=== PATIENT | female | born 1970 ===

== ENCOUNTER → 2018-03-02 | Outpatient (CLI) | payer OTHER, BC ==
[~2018-03-02] MED LIST: BUDE10.2 IH; DICL75TA PO; FLUT16SP NS; IBUP-1027 PO; LOSA25TA54 PO; MELA3TAB2 PO; MONT10TA9 PO; NORG1TAB39 PO; VENTOLIN HFA18 GM INH
[2018-03-02 15:14] LABS: BILIRUBIN,URINE NEGATIVE (NEG); CLARITY,URINE CLEAR; COLOR,URINE YELLOW; NITRITE,URINE NEGATIVE (NEG); PROTEIN,URINE NEGATIVE (NEG-TRACE); UROBILINOGEN,URINE 0.2 mg/dL (0.2 mg/dL)
[2018-03-02 15:22] LABS: BASO # 0.1 x10^3/uL (0.0-0.2); BASO % 1 % (0-3); EOS # 0.1 x10^3/uL (0.0-0.7); EOS % 2 % (0-3); HEMATOCRIT 39.1 % (36.0-47.0); HEMOGLOBIN 13.8 g/dL (12.0-15.5); LYMPH # 1.6 x10^3/uL (1.0-4.8); LYMPH % 23 % (24-48); MEAN CORPUSCULAR HEMOGLOBIN 31 pg (25-35); MEAN CORPUSCULAR HGB CONC 35 g/dL (31-37); MEAN CORPUSCULAR VOLUME 88 fL (79-100); MONO # 0.5 x10^3/uL (0.0-1.1); MONO % 7 % (0-9); NEUT # 4.5 x10^3uL (1.8-7.7); NEUT % 67 % (31-73); PLATELET COUNT 298 x10^3/uL (140-400); RED BLOOD COUNT 4.45 x10^6/uL (3.50-5.40); RED CELL DISTRIBUTION WIDTH 12.5 % (11.5-14.5); WHITE BLOOD COUNT 6.7 x10^3/uL (4.0-11.0)
[2018-03-02 15:23] LABS: SQUAMOUS EPITHELIAL CELL,UR MANY /LPF
[2018-03-02 15:24] LABS: BACTERIA,URINE MODERATE /HPF (0-FEW)
--- NOTE | 2018-03-02 15:30 | EKG ---
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 Electronically Signed On 03-03-2018 13:11:27 SIDE DOOR WORKER by Demetrius Rolle
[2018-03-02 15:54] LABS: ALBUMIN 3.9 g/dL (3.4-5.0); CALCIUM 9.1 mg/dL (8.5-10.1); CREATININE 0.9 mg/dL (0.6-1.0); GFR 66.8; POTASSIUM 3.6 mmol/L (3.5-5.1); TOTAL BILIRUBIN 0.4 mg/dL (0.2-1.0); TOTAL PROTEIN 7.8 g/dL (6.4-8.2)
--- NOTE | 2018-03-02 16:51 | RAD ---
Chest radiograph 03/02/2018 4:25 PM INDICATION: Preoperative hysterectomy COMPARISON: None available TECHNIQUE: Frontal and lateral views of the chest are provided. FINDINGS: The cardiomediastinal silhouette is within normal limits. There are no pleural effusions. There is no pulmonary vascular congestion. There is no pneumothorax. The lungs are clear. No significant osseous abnormality is identified. IMPRESSION: No acute cardiopulmonary process. Electronically signed by: Stephanie Hoyt MD (03/02/2018 4:47 PM) [id number]
== END | disposition home or self-care (01) ==
LOC: SURGPAT 14:38
PROVIDERS: ATTEND Obstetrics & Gynecology
DX: Z01.818 Encounter for other preprocedural examination (principal); I10 Essential (primary) hypertension; Z98.890 Other specified postprocedural states
CPT/HCPCS: 36415; 71046; 80053; 81001; 85025; 87086; 93005

== ENCOUNTER 2018-03-09 09:03 | Observation (INO) | payer BC, OTHER ==
[2018-03-09] VITALS (7 sets, daily range): BP systolic 93–122; BP diastolic 55–76
[~2018-03-09] VITALS: Ht 154.9 cm; Wt 69.4 kg
[~2018-03-09 09:03] MED LIST changes: +IV RINGERS,LACTATED 1000ML 1,000 ML IV SCH; +LIDOCAINE 1% PF 2 ML VIAL. ID PRN; +ONDANSETRON PF 4 MG/2 ML VIAL. IV PRN; +PROCHLORPERAZINE 10 MG/2 ML VIAL. IV PRN; +fentaNYL PF VIAL 100 MCG/2 ML VIAL IV PRN
[2018-03-09] MEDS ORDERED: fentaNYL PF VIAL 100 MCG/2 ML VIAL ONE ×3 (09:27→12:19)
[2018-03-09] MEDS ORDERED: DEXAMETHASONE SOD PHOS 20 MG/5 ML VIAL. ONE (09:27)
[2018-03-09] MEDS ORDERED: MIDAZOLAM HCL/PF 2 MG/2 ML VIAL. ONE (09:27)
[2018-03-09] MEDS ORDERED: FAMOTIDINE 20 MG/2 ML VIAL ONE (09:27)
[2018-03-09] MEDS ORDERED: PROPOFOL 20 ML IV ONE (09:27)
[2018-03-09] MEDS ORDERED: ROCURONIUM 50 MG/5 ML VIAL. ONE (09:27)
[2018-03-09] MEDS ORDERED: ONDANSETRON PF 4 MG/2 ML VIAL. ONE (09:27)
[2018-03-09] MEDS ORDERED: LIDOCAINE 2% PF Vial for OR 5 ML VIAL. ONE (09:27)
[2018-03-09] MEDS ORDERED: KETOROLAC 30 MG/ML INJ FOR OR. INJ ONE (09:27)
[2018-03-09] MEDS ORDERED: METHYLENE BLUE 1% 10 ML VIAL. ONE (09:33)
[2018-03-09] MEDS ORDERED: ESTROGENS, CONJ VAGINAL CREAM 30GM TUBE. ONE (09:33)
[2018-03-09] MEDS ORDERED: BUPIVAC MPF-EPI 0.5%-1:200000 30 ML VIAL. ONE (09:33)
[2018-03-09] MEDS ORDERED: SCOPOLAMINE 1.5MG PATCH. TD ONE ×2 (09:43→09:45)
[2018-03-09 10:09] LABS: U PREG PATIENT NEGATIVE (NEG)
[2018-03-09] MEDS ORDERED: hydrALAZINE 20 MG/ML VIAL. ONE (10:13)
[2018-03-09] MEDS ORDERED: diphenhydrAMINE 50 MG/ML VIAL ONE (10:16)
[2018-03-09] MEDS ORDERED: GLYCOPYRROLATE 1 MG/5 ML VIAL. ONE (11:29)
[2018-03-09] MEDS ORDERED: NEOSTIGMINE METHYLSULFATE 5 MG/5 ML SYRINGE. ONE (11:30)
[2018-03-09] MEDS ORDERED: SEVOFLURANE > 120 MINUTES. IH ONE (11:38)
[2018-03-09] MEDS ORDERED: ONDANSETRON PF 4 MG/2 ML VIAL. IV PRN (11:45)
[2018-03-09] MEDS ORDERED: HYDROmorphone 2 MG TABLET PO PRN (11:45)
[2018-03-09] MEDS ORDERED: 0.9 % SODIUM CHLORIDE 10 ML DISP.SYRIN. IV PRN (11:45)
[2018-03-09] MEDS ORDERED: MAG HYDROX/ALUMINUM HYD/SIMETH 30 ML ORAL.SUSP PO PRN (11:45)
[2018-03-09] MEDS ORDERED: ZOLPIDEM 5 MG TABLET. PO PRN (11:45)
[2018-03-09] MEDS ORDERED: SIMETHICONE 80 MG TAB.CHEW PO PRN (11:45)
[2018-03-09] MEDS ORDERED: MORPHINE SULFATE 4 MG/ML VIAL. IV PRN (11:45)
[2018-03-09] MEDS ORDERED: diphenhydrAMINE HCL 25 MG CAPSULE PO PRN (11:45)
[2018-03-09] MEDS ORDERED: NALOXONE 0.4 MG/ML VIAL. IV PRN (11:45)
[2018-03-09] MEDS ORDERED: MAGNESIUM HYDROXIDE 2,400 MG/30 ML ORAL.SUSP. PO PRN (11:45)
[2018-03-09] MEDS ORDERED: CALCIUM CARBONATE 500 MG TAB.CHEW PO PRN (11:45)
[2018-03-09] MEDS ORDERED: LACTULOSE 20 GM/30 ML SOLUTION. PO PRN (11:45)
[2018-03-09] MEDS ORDERED: diphenhydrAMINE 50 MG/ML VIAL IV PRN (11:45)
--- NOTE | 2018-03-09 11:53 | PDOC ---
BRIEF OPERATIVE NOTE Date: Mar 09, 2018 Pre-Op Diagnosis menorrhagia, pelvic pain, right ovarian cyst, fibroids Post-Op Diagnosis same mild adhesive disease on left side Procedure Performed LAVH/RSO/left salpingectomy and mild adhesiolysis Surgeon Dr. Lupe Villa Car Refinisher Aleksandra Simon, RN FA Anesthesiologist Dr. Vela Anesthesia Type: General Blood Loss 50cc IV Fluid 1100cc Urine Output 150cc clear via joy Specimens Obtained cervix, uterus, right tube and ovary, left tube Findings enlarged uterus, normal left tube and ovary, normal right tube and mildly enlarged right ovary Complications none Operative Note [id number] LUPE VILLA MD Mar 09, 2018 11:52
[2018-03-09] MEDS: fentaNYL PF VIAL 100 MCG/2 ML VIAL IV PRN ×2 (12:28→12:34)
[2018-03-09] MEDS ORDERED: NON FORMULARY ITEM (Albuterol Sulfate (Ventolin Hfa Inhaler) 2 PUFF) INH SCH (13:00)
--- NOTE | 2018-03-09 13:02 | OP ---
DATE OF SURGERY: 03/09/2018 PREOPERATIVE DIAGNOSES: Menorrhagia, pelvic pain and large fibroid uterus, right ovarian cyst. POSTOPERATIVE DIAGNOSES: Menorrhagia, pelvic pain and large fibroid uterus, right ovarian cyst. PROCEDURE: Laparoscopic assisted vaginal hysterectomy, right salpingo-oophorectomy, left salpingectomy. SURGEON: Fay Villa M.D. PRESS SMITH HELPER: THAI Muhammad. ANESTHESIOLOGIST: Dr. Vela. ANESTHESIA: General. ESTIMATED BLOOD LOSS: 50 mL. URINE OUTPUT: 150 mL, clear via Mtz catheter. IV FLUIDS: 1100 mL of crystalloid. SPECIMEN: Cervix, uterus, right tube and ovary, left tube. FINDINGS: An enlarged uterus, normal left tube and ovary, normal right tube, mildly enlarged right ovary. She had mild adhesions of the omentum to the left pelvic sidewall down that had to be taken down. Some mild adhesiolysis. COMPLICATIONS: None. DESCRIPTION OF PROCEDURE: This patient was taken to the operating room where general anesthesia was placed. The patient was placed in dorsal lithotomy position in Abner stirrups. The patient was placed in dorsal lithotomy position in Abner stirrups. The patient's abdomen and vagina were prepped and draped in the normal sterile fashion and a Mtz catheter had been inserted under sterile technique. Upon my arrival, a timeout was performed. Once everyone agreed, a bivalve speculum was placed in the patient's vagina. A single-tooth tenaculum was used to grasp the anterior lip of the cervix. A 10 mL of 0.5% Marcaine with epinephrine was used to circumferentially inject around the cervix for both hemodissection and hemostatic purposes later. The Valtchev uterine manipulator was then placed through the endocervical os, locked on the single tooth tenaculum and the bivalve speculum was then removed. Top gloves were discarded and changed. Attention was then turned to the abdomen where a small infraumbilical skin incision was made. A curved Katie was used to dissect through the subcuticular layer to the fascia. The 5 mm Visiport was used to directly enter the abdominal cavity. Opening patient pressure was 3-4 mmHg. Carbon dioxide gas was used to then appropriately insufflate the abdominal cavity to maintain a pressure of 15 mmHg. The patient was placed in Trendelenburg position. Right and left lower quadrant ports were placed in an area clear on the inside, but transilluminating the abdomen, finding an area clear of any vasculature, making a small incision and placing a 5 mm disposable trocar under direct visualization through without difficulty. This was done for right and left lower quadrants. Once this was done, I did move the camera to look at the umbilical port, and it was clear and 2 mL of air was placed in all of the 3 trocars. At this point, the left tube and ovary were examined. They were normal, and she wished to retain the left ovary. So I went above the ovary below the tube into the left salpingectomy, crossed the left uterine ovarian pedicle and the left round ligament, cauterizing and cutting with the LigaSure. Then, on the right side, the right ovary was enlarged mildly and that is where her pain was, so it was elevated, finding the ureter coursing very low, staying high on the IP ligament, but beneath the ovary this time doing the RSO, crossing the IP ligament, cauterizing and cutting, going over and crossing the right round ligament as well. The bladder flap was then created sharply with the monopolar hook, and it was pulled down easily. The uterine vasculature was obtained on both sides and then hugging the cervix, going down through the cardinal and broad ligaments, cauterizing and cutting with the LigaSure till I was down to the level of the uterosacrals bilaterally. Once this was done, the uterus was completely free and blanched. All instruments were removed from the abdomen and attention was turned vaginally. The single tooth and Valtchev were removed. A weighted speculum was placed in the patient's vagina. Thyroid Brendan clamps were placed on the anterior and posterior lips of the cervix respectively. A scalpel was used to make a circumferential incision in the cervix. An open Ray-Jose Luis 4 x 4 was used to gently push up the anterior bladder peritoneum, and the anterior cul-de-sac was digitally and bluntly entered. The Ray-Jose Luis was then removed. The curved Loraine was placed in the anterior cul-de-sac. The cervix was elevated, and the posterior cul-de-sac was sharply entered with the Joshi scissors. A #0 Vicryl stitch was used to secure the posterior peritoneum here to the vaginal cuff, and it was tagged with a curved Katie clamp. The needle was cut and passed off. The short weighted speculum was removed and replaced with the long weighted vaginal Vonnie speculum in the posterior cul-de-sac. Curved Nikolay clamps x 2 were placed on the patient's left uterosacral ligament where they were doubly clamped with curved Heaneys, cut with Joshi scissors and suture ligated x 2 with 0 Vicryl. Second one was taken through the vaginal cuff, securing uterosacral ligament to the vaginal cuff, tagging it with a straight Katie clamp and cutting and passing the needle off. This was done exactly the same on the right side, double clamping the uterosacrals with curved Nikolay's, cutting with Joshi scissors and suture ligating x 2 with 0 Vicryl, again taking the second one through the vaginal cuff and tagging it with a straight Katie clamp and cutting and passing the needle off. The remaining pedicles on both sides were delineated with a right angle Mixter, and the vaginal LigaSure was used to cauterize and cut the remaining pedicles. The left tube and right tube and ovary were then delivered in total and passed off for permanent pathology. A long Allis was used to grasp the anterior bladder peritoneum. A sponge stick was used to examine the pedicles which appeared to be hemostatic. The long Vonnie speculum was removed and replaced with a short weighted vaginal speculum. 2-0 Vicryl was taken through the anterior bladder peritoneum, left uterosacral ligament, posterior peritoneum and right uterosacral ligament, thus closing the peritoneum in a pursestring like fashion. Once this was done, the right and left uterosacral tags were cut as well. A full length 2-0 Vicryl was used to close the cuff in an anterior to posterior running locked fashion, and it was tied to that posterior vaginal cuff tag. An imbricating stitch in the middle was placed for hemostasis with excellent results. The cuff was completely hemostatic when I examined it with a sponge stick at the end. So the weighted speculum was removed, and the vaginal part was ended. All gloves were discarded and changed and attention was turned back above for a second look where she was placed back in Trendelenburg and reinsufflated with air. Copious irrigation revealed hemostasis. The right and left pericolic gutters were clear, and the cuff was hemostatic as well. Tisseel was placed over the cuff with excellent results. The right and left lower quadrant ports, the trocars, the 2 mL of air was removed, and they were removed under direct visualization, and they were hemostatic. The air was released from the umbilical port, but all the gas was removed from it first, then it was removed. All 3 port sites were being closed with 4-0 Monocryl in a subcuticular fashion, and the patient is currently being awakened from anesthesia. FAY VILLA MD DR: JADE/deven JOB#: [id number] / [id number]
[2018-03-09] MEDS: HYDROmorphone 2 MG/ML VIAL IV PRN ×3 (15:10→23:44)
[2018-03-09] MEDS ORDERED: ALBUTEROL SULFATE 2.5 MG/3 ML NEBU. NEB SCH (16:00)
[2018-03-09] MEDS ORDERED: ALBUTEROL SULFATE 2.5 MG/3 ML NEBU. NEB PRN (18:45)
[2018-03-09] MEDS: IBUPROFEN 400 MG TABLET. PO PRN (19:36)
[2018-03-09] MEDS: MONTELUKAST SODIUM 10 MG TABLET. PO SCH (20:39)
[2018-03-10 03:33] VITALS: BP 102/58
[2018-03-10 05:38] LABS: CALCIUM 8.2 mg/dL (8.5-10.1); CREATININE 1.1 mg/dL (0.6-1.0); POTASSIUM 4.3 mmol/L (3.5-5.1)
[2018-03-10] MEDS: IBUPROFEN 400 MG TABLET. PO PRN (07:19)
[2018-03-10] MEDS ORDERED: LOSARTAN POTASSIUM 25 MG TABLET. PO SCH (09:00)
[2018-03-10 09:32] VITALS: BP 107/64
[2018-03-10] MEDS: MONTELUKAST SODIUM 10 MG TABLET. PO SCH (09:38)
[2018-03-10] MEDS: FLUTICASONE 50MCG/NASAL SPRAY 16GM BOTTLE. NS SCH ×2 (09:39→10:54)
--- NOTE | 2018-03-10 12:39 | PDOC ---
SURGICAL PROGRESS NOTE Subjective Doing well without complaints. Voiding without catheter. tolerating regular diet Vital Signs Vital Signs Date Time Temp Pulse Resp B/P (MAP) Pulse Ox O2 Delivery O2 Flow Rate FiO2 03/10/18 09:32 98.3 81 18 107/64 (78) 97 Room Air 98.3 03/09/18 19:37 2.0 I&O Intake and Output 03/10/18 07:01 Intake Total 1360 ml Output Total 400 ml Balance 960 ml Intake Oral 10 ml IV Total 1350 ml Output Urine Total 350 ml Estimated Blood Loss 50 ml PATIENT HAS A BOSE: No General: Alert, Oriented X3, Cooperative, No acute distress HEENT: Atraumatic Heart: Regular rate Abdomen: Soft, No tenderness, No masses, Other (all port sites c/d/i) Extremities: No clubbing, No cyanosis, No edema, No tenderness/swelling Skin: No rashes, No breakdown Neuro: Normal speech Psych/Mental Status: Mental status NL, Mood NL Labs Laboratory Tests Test 03/09/18 09:15 03/10/18 03:45 03/10/18 04:00 Urine Test Negative (NEG) Hematocrit 32.8 % (36.0-47.0) Sodium Level 139 mmol/L (136-145) Potassium Level 4.3 mmol/L (3.5-5.1) Chloride Level 104 mmol/L (98-107) Carbon Dioxide Level 27 mmol/L (21-32) Anion Gap 8 (6-14) Blood Urea Nitrogen 13 mg/dL (7-20) Creatinine 1.1 mg/dL (0.6-1.0) Estimated GFR (Cockcroft-Gault) 53.0 Glucose Level 88 mg/dL (70-99) Calcium Level 8.2 mg/dL (8.5-10.1) Laboratory Tests Test 03/10/18 03:45 03/10/18 04:00 Hematocrit 32.8 % (36.0-47.0) Sodium Level 139 mmol/L (136-145) Potassium Level 4.3 mmol/L (3.5-5.1) Chloride Level 104 mmol/L (98-107) Carbon Dioxide Level 27 mmol/L (21-32) Anion Gap 8 (6-14) Blood Urea Nitrogen 13 mg/dL (7-20) Creatinine 1.1 mg/dL (0.6-1.0) Estimated GFR (Cockcroft-Gault) 53.0 Glucose Level 88 mg/dL (70-99) Calcium Level 8.2 mg/dL (8.5-10.1) I have reviewed the following labs, vitals, nursing Cardiovascular: HTN Pulmonary: Asthma GI: No pertinent hx Heme/Onc: No pertinent hx Psych: No pertinent hx Assessment/Plan POD#1 s/p LAVH/bilateral salpingectomy Routine PO care d/c to home later today NPV x 6 weeks Light/limited activity x 2 weeks keep scheduled follow up with me in the office pt already has narcotic script at home ok to alternate ibuprofen as needed OTC as well call or return sooner for any other questions or concerns not limited to but including pain unrelieved with pain meds, increased or unexplained vaginal bleeding or any other questions or concerns FAY WALLS MD Mar 10, 2018 12:39
--- NOTE | 2018-03-10 12:41 | PDOC3 ---
Discharge Summary Visit Information Date of Admission: Mar 09, 2018 Date of Discharge: Mar 10, 2018 Final Diagnosis menorrhagia, fibroids, right ovarian cyst Brief Hospital Course Allergies Allergies Coded Allergies Type Severity Reaction Last Updated Verified codeine Allergy Intermediate Nausea and Vomiting 03/09/18 Yes Vital Signs Vital Signs Date Time Temp Pulse Resp B/P (MAP) Pulse Ox O2 Delivery O2 Flow Rate FiO2 03/10/18 09:32 98.3 81 18 107/64 (78) 97 Room Air 98.3 03/09/18 19:37 2.0 Lab Results Laboratory Tests Test 03/09/18 09:15 03/10/18 03:45 03/10/18 04:00 Urine Test Negative (NEG) Hematocrit 32.8 % (36.0-47.0) Sodium Level 139 mmol/L (136-145) Potassium Level 4.3 mmol/L (3.5-5.1) Chloride Level 104 mmol/L (98-107) Carbon Dioxide Level 27 mmol/L (21-32) Anion Gap 8 (6-14) Blood Urea Nitrogen 13 mg/dL (7-20) Creatinine 1.1 mg/dL (0.6-1.0) Estimated GFR (Cockcroft-Gault) 53.0 Glucose Level 88 mg/dL (70-99) Calcium Level 8.2 mg/dL (8.5-10.1) Laboratory Tests Test 03/10/18 03:45 03/10/18 04:00 Hematocrit 32.8 % (36.0-47.0) Sodium Level 139 mmol/L (136-145) Potassium Level 4.3 mmol/L (3.5-5.1) Chloride Level 104 mmol/L (98-107) Carbon Dioxide Level 27 mmol/L (21-32) Anion Gap 8 (6-14) Blood Urea Nitrogen 13 mg/dL (7-20) Creatinine 1.1 mg/dL (0.6-1.0) Estimated GFR (Cockcroft-Gault) 53.0 Glucose Level 88 mg/dL (70-99) Calcium Level 8.2 mg/dL (8.5-10.1) Brief Hospital Course Ms. Olivarez is a 47 old female who presented with menorrhagia, enlarged uterus, right adnexal enlargement. She underwent LAVH yesterday without complications. She has had an unremarkable postoperative course and is desiring to go home. Discharge Information Condition at Discharge: Improved Follow Up: Weeks Disposition/Orders: D/C to Home Scheduled Albuterol Sulfate (Ventolin Hfa Inhaler) 18 Gm Hfa.aer.ad, 2 PUFF INH QID for FOR ASTHMA, Ref 0 (Reported) Entered as Reported by: DAMARI ORTIZ on 03/02/181510 Last Taken: Unknown Dose on 03/09/18 08 Last Action: Last Taken Edited on 03/09/18927 by FRANKIE SMALLWOOD Fluticasone Propionate (Fluticasone Propionate Nasal [place]) 16 Gm [place].susp, 2 SPRAY NS DAILY for congestion, #1 Ref 11 (Reported) Entered as Reported by: DAMARI ORTIZ on 03/02/181509 Last Taken: Unknown Dose on 03/09/18799 Last Action: Last Taken Edited on 03/09/18927 by FRANKIE SMALLWOOD Losartan Potassium (Losartan Potassium ) 25 Mg Tablet, 25 MG PO DAILY, ( Reported) Entered as Reported by: Gianna Good on 10/22/13 1310 Last Taken: Unknown Dose on 03/08/182229 Last Action: Last Taken Edited on 03/09/18927 by FRANKIE SMALLWOOD Melatonin (Melatonin) 3 Mg Tablet, 10 MG PO HS for insomnia, (Reported) Entered as Reported by: DAMARI ORTIZ on 03/02/181511 Last Taken: Unknown Dose on 02/26/18 Last Action: Last Taken Edited on 927 by FRANKIE SMALLWOOD Montelukast Sodium (Montelukast Sodium Tablet) 10 Mg Tablet, 1 TAB PO DAILY for allergies, #30 Ref 5 (Reported) Entered as Reported by: DAMARI ORTIZ on 03/02/181512 Last Taken: Unknown Dose on 03/08/18 08 Last Action: Last Taken Edited on 03/09/18927 by FRANKIE SMALLWOOD Scheduled PRN Ibuprofen (Ibuprofen) 400 Mg Tablet, 400 MG PO PRN Q6HRS PRN for INFLAMMATION, ( Reported) Entered as Reported by: DAMARI ORTIZ on 03/02/181511 Last Taken: Unknown Dose on 02/26/18 Last Action: Last Taken Edited on 927 by FRANKIE SMALLWOOD Patient Instructions Patient Instructions POD#1 s/p LAVH/bilateral salpingectomy Routine PO care d/c to home later today NPV x 6 weeks Light/limited activity x 2 weeks keep scheduled follow up with me in the office pt already has narcotic script at home ok to alternate ibuprofen as needed OTC as well call or return sooner for any other questions or concerns not limited to but including pain unrelieved with pain meds, increased or unexplained vaginal bleeding or any other questions or concerns FAY WALLS MD Mar 10, 2018 12:41
--- NOTE | 2018-03-13 15:07 | PATHOLOGY ---
[facility] Accession Number: [id number] . 01 Material submitted: . UTERUS, CERVIX, BILATERAL TUBES, AND RIGHT OVARY . 01 Clinical history: . Excessive vaginal bleeding. . 02 Diagnosis: Uterus, bilateral fallopian tubes and right ovary, removal: - Cervix with mild chronic inflammation, squamous metaplasia, and Nabothian cysts. - Proliferative phase endometrium. - Myometrium with adenomyosis and leiomyomata, 3, up to 1.5 cm. - Serosal surface with no pathologic diagnosis. - Right ovary with hemorrhagic corpus luteum. - Right and left fallopian tubes with no pathologic diagnosis. (SKM:abdirahman; 03/13/2018) QMS/03/13/2018 . 02 Electronically signed: . Julio Jennings MD, Pathologist NPI- [id number] . 01 Gross description: . Received in formalin labeled "Dora Olivarez, uterus, cervix, bilateral tubes, right ovary" is a hysterectomy specimen consisting of a uterus with attached fallopian tubes and attached right ovary. The uterus weighs 161 g and measures 12.0 cm from fundus to cervix, 6.8 cm from cornu to cornu, and 5.4 cm from anterior to posterior. The serosa is pink richardson and smooth. The cervical os is slitlike and measures 1.4 cm, and the ectocervix is pink-richardson and glistening. The cervix is probed patent and the uterus is opened to reveal a 4.5 x 2.3 cm endometrial cavity and a 2.8 x 0.9 cm endocervical canal. The average endometrial thickness measures 0.2 cm and the average myometrial thickness measures 2.3 cm. The uterus is serially sectioned to reveal three leiomyomata ranging from 0.7-1.5 cm in greatest dimension. . The right fimbriated fallopian tube measures 6.5 cm in length and 0.7 cm in diameter. The left fimbriated fallopian tube measures 5.5 cm in length and 0.6 cm in diameter. The serosal surfaces are pink richardson and smooth and the fallopian tubes are serially sectioned to reveal pinpoint lumens. The right ovary weighs 11 g and measures 3.8 x 2.4 x 1.7 cm. The ovary is a richardson-white cerebriform external surface and is sectioned to reveal multiple hemorrhagic cystic structures ranging from 0.8-1.1 cm in greatest dimension. Professor Of Languages sections are submitted as follows: A1 12:00 cervix A2 6:00 cervix A3 anterior endomyometrium A4 posterior endomyometrium A5 shipping services sales representative right fallopian tube A6 shipping services sales representative left fallopian tube A7 shipping services sales representative right ovary A8 shipping services sales representative leiomyomata ([facility] [place]; 03/09/2018) . . SYC/SYC . 02 Pathologist provided ICD-10: N72, N88.8, N80.0, D25.9 . 02 CPT . 465494 Specimen Comment: A courtesy copy of this report has been sent to Specimen Comment: [phone], . Specimen Comment: Report sent to / DR ELAINE Specimen Comment: A duplicate report has been generated due to demographic updates. Performed at: 01 [facility] [address] [facility] [address], [place] [id number] MD Cj Roberts MD Phone: [phone] Performed at: 02 [facility] [address] [place], [place] [id number] MD Fidel Montague MD Phone: [phone]
== END 2018-03-10 13:23 | disposition home or self-care (01) ==
LOC: SURG 09:03 → 3 NORTH 12:00
PROVIDERS: ADMIT Obstetrics & Gynecology; ATTEND Obstetrics & Gynecology
DX: D25.9 Leiomyoma of uterus, unspecified (principal); N92.0 Excessive and frequent menstruation with regular cycle; N83.201 Unspecified ovarian cyst, right side; K66.0 Peritoneal adhesions (postprocedural) (postinfection)
CPT/HCPCS: 36415; 58552; 80048; 81025; 85014; 86850; 86900; 86901; 94760; 96374; 96376; A7015; G0378; G0379; J0690; J1100; J1170; J1200; J2001; J2250; J2405; J2704; J2710; J3010; J3490; J7030; J7120; 88307; J0360; J1885; Q9968